=== PATIENT | male | born 1935 | race Caucasian/White ===

== ENCOUNTER 2016-10-31 07:18 | Inpatient (IN) | payer MEDICARE, BC ==
[2016-10-31 07:34] LABS: Glucose,Whole Blood 111 mg/dL (75-99)
[2016-10-31] MEDS ORDERED: RX INFO: IV CONTRAST WAS GIVEN 1 EACH MISC MISCELLANE PRN (07:41)
[2016-10-31] MEDS ORDERED: SODIUM CHLORIDE 0.9% 500 ML IV STA (07:41)
--- NOTE | 2016-10-31 07:45 | ED ---
General Adult HPI - General Chief complaint: Neuro Symptoms/Deficit Stated complaint: poss cva, left sided weakness Time Seen by Provider: 10/31/16 07:25 Source: patient, EMS, RN notes reviewed Mode of arrival: EMS Limitations: no limitations - History of Present Illness Initial comments: This is an 81-year-old male who was last seen at 8:30 last night and was normal at that time. This morning he was found on the ground after having tried to go to bathroom and he was unable to move his left leg and was weak in the left arm. According to family he has not had a history of this before. Patient himself denies any pain. Patient denies headache patient denies any numbness he now realizes he has weakness on the left side but initially did not. Patient denies any chest pain palpitations difficulty breathing shortness of breath. Patient denies any fever or cough. Patient denies abdominal pain patient denies nausea vomiting diarrhea. Patient denies being lightheaded or dizzy. - Related Data Home Medications Medication Instructions Recorded Confirmed Acetaminophen [Tylenol] 500 mg PO BID PRN 10/22/14 10/22/14 Aspirin EC [Ecotrin Low Dose] 81 mg PO DAILY 10/22/14 10/22/14 Atenolol [Tenormin] 50 mg PO BID 10/22/14 10/22/14 Cholecalciferol [Vitamin D3] 1,000 unit PO DAILY 10/22/14 10/22/14 Cyanocobalamin [Vitamin B-12] 1,000 mcg PO DAILY 10/22/14 10/22/14 Donepezil [Aricept] 5 mg PO HS 10/22/14 10/22/14 Insulin NPL/Insulin Lispro 40 unit SQ BID 10/22/14 10/22/14 [humaLOG MIX 75-25 VIAL] Multivitamin [Men's Multi-Vitamin] 1 tab PO DAILY 10/22/14 10/22/14 Allergies Allergy/AdvReac Type Severity Reaction Status Date / Time No Known Allergies Allergy Verified 10/22/14 18:54 Review of Systems ROS Statement: Those systems with pertinent positive or pertinent negative responses have been documented in the HPI. ROS Other: All systems not noted in ROS Statement are negative. Past Medical History Past Medical History: Chest Pain / Angina, Diabetes Mellitus, Hyperlipidemia, Hypertension, Osteoarthritis (OA) Additional Past Medical History / Comment(s): Parkinsons History of Any Multi-Drug Resistant Organisms: None Reported Past Surgical History: Appendectomy, Back Surgery, Cholecystectomy Additional Past Surgical History / Comment(s): tish cataracts, pilonidal cyst removed, pain clinic procedures Past Anesthesia/Blood Transfusion Reactions: No Reported Reaction Past Psychological History: No Psychological Hx Reported Smoking Status: Former smoker Past Alcohol Use History: None Reported Past Drug Use History: None Reported - Past Family History Mother History Unknown: Yes Father Additional Family Medical History / Comment(s): heart problems General Exam - General Exam Comments Initial Comments: GENERAL: Patient is well-developed and well-nourished. Patient is nontoxic and well- hydrated and is in no acute distress. ENT: Neck is soft and supple. No significant lymphadenopathy is noted. Oropharynx is clear. Moist mucous membranes. Neck has full range of motion without eliciting any pain. EYES: The sclera were anicteric and conjunctiva were pink and moist. Extraocular movements were intact and pupils were equal round and reactive to light. Eyelids were unremarkable. PULMONARY: Unlabored respirations. Good breath sounds bilaterally. No audible rales rhonchi or wheezing was noted. CARDIOVASCULAR: There is a regular rate and rhythm without any murmurs gallops or rubs. ABDOMEN: Soft and nontender with normal bowel sounds. No palpable organomegaly was noted. There is no palpable pulsatile mass. SKIN: Skin is clear with no lesions or rashes and otherwise unremarkable. NEUROLOGIC: Patient is alert and oriented x3. Cranial nerves II through XII are grossly intact. Patient has normal smile and his speech is normal. Patient has weakness in the left arm 3 out of 5 and almost complete paralysis of the left leg. MUSCULOSKELETAL: Normal extremities with adequate strength and full range of motion. No lower extremity swelling or edema. No calf tenderness. LYMPHATICS: No significant lymphadenopathy is noted PSYCHIATRIC: Normal psychiatric evaluation. Normal interpersonal interactions appears functionally intact in deals appropriately with others. No signs of depression. No signs of anxiety. No delusions. No hallucinations. Limitations: no limitations Course Vital Signs 10/31/16 10/31/16 07:25 08:29 Temperature 97.4 F L Pulse Rate 53 L 59 L Respiratory 20 18 Rate Blood Pressure 164/77 164/76 O2 Sat by Pulse 100 100 Oximetry Medical Decision Making - Medical Decision Making EKG shows sinus rhythm with occasional PVC at 64 bpm HI interval is 184 QRS is 92 QT interval is 466 QTC is 480. Patient's EKG shows no ST segment elevation however there is some flattening of the T-wave in the inferior leads. Chest x-ray shows no acute abnormality. Computed tomography scan and CTA showed no acute abnormality other than a 50% stenosed left carotid. Patient remains weak on the left side. I spoke with Dr. Helms who is on for Dr. Pepe and admitted the patient wrote admitting orders and consult the neurology - Lab Data Result diagrams: 10/31/16 07:35 10/31/16 07:35 Lab Results 10/31/16 10/31/16 10/31/16 Range/Units 07:33 07:35 07:35 WBC 7.3 (3.8-10.6) k/uL RBC 5.20 (4.30-5.90) m/uL Hgb 14.9 (13.0-17.5) gm/dL Hct 44.9 (39.0-53.0) % MCV 86.3 (80.0-100.0) fL MCH 28.7 (25.0-35.0) pg MCHC 33.3 (31.0-37.0) g/dL RDW 14.9 (11.5-15.5) % Plt Count 144 L (150-450) k/uL Neutrophils % 82 % Lymphocytes % 11 % Monocytes % 4 % Eosinophils % 2 % Basophils % 1 % Neutrophils # 6.0 (1.3-7.7) k/uL Lymphocytes # 0.8 L (1.0-4.8) k/uL Monocytes # 0.3 (0-1.0) k/uL Eosinophils # 0.1 (0-0.7) k/uL Basophils # 0.1 (0-0.2) k/uL PT (9.0-12.0) sec INR (<1.2) APTT (22.0-30.0) sec Sodium (137-145) mmol/L Potassium (3.5-5.1) mmol/L Chloride (98-107) mmol/L Carbon Dioxide (22-30) mmol/L Anion Gap mmol/L BUN (9-20) mg/dL Creatinine (0.66-1.25) mg/dL Est GFR (MDRD) Af Amer (>60 ml/min/1.73 sqM) Est GFR (MDRD) Non-Af (>60 ml/min/1.73 sqM) Glucose (74-99) mg/dL POC Glucose (mg/dL) 111 H (75-99) mg/dL POC Glu [employer] ID Fernanda Cardoso Calcium (8.4-10.2) mg/dL Total Bilirubin (0.2-1.3) mg/dL AST (17-59) U/L ALT (21-72) U/L Alkaline Phosphatase (38-126) U/L Total Creatine Kinase 78 (55-170) U/L CK-MB (CK-2) 2.1 (0.0-2.4) ng/mL CK-MB (CK-2) Rel Index 2.7 Troponin I 0.031 (0.000-0.034) ng/mL Total Protein (6.3-8.2) g/dL Albumin (3.5-5.0) g/dL 10/31/16 10/31/16 Range/Units 07:35 07:35 WBC (3.8-10.6) k/uL RBC (4.30-5.90) m/uL Hgb (13.0-17.5) gm/dL Hct (39.0-53.0) % MCV (80.0-100.0) fL MCH (25.0-35.0) pg MCHC (31.0-37.0) g/dL RDW (11.5-15.5) % Plt Count (150-450) k/uL Neutrophils % % Lymphocytes % % Monocytes % % Eosinophils % % Basophils % % Neutrophils # (1.3-7.7) k/uL Lymphocytes # (1.0-4.8) k/uL Monocytes # (0-1.0) k/uL Eosinophils # (0-0.7) k/uL Basophils # (0-0.2) k/uL PT 10.7 (9.0-12.0) sec INR 1.1 (<1.2) APTT 22.6 (22.0-30.0) sec Sodium 140 (137-145) mmol/L Potassium 4.5 (3.5-5.1) mmol/L Chloride 107 (98-107) mmol/L Carbon Dioxide 27 (22-30) mmol/L Anion Gap 6 mmol/L BUN 15 (9-20) mg/dL Creatinine 0.91 (0.66-1.25) mg/dL Est GFR (MDRD) Af Amer >60 (>60 ml/min/1.73 sqM) Est GFR (MDRD) Non-Af >60 (>60 ml/min/1.73 sqM) Glucose 110 H (74-99) mg/dL POC Glucose (mg/dL) (75-99) mg/dL POC Glu [employer] ID Calcium 9.1 (8.4-10.2) mg/dL Total Bilirubin 0.8 (0.2-1.3) mg/dL AST 26 (17-59) U/L ALT 29 (21-72) U/L Alkaline Phosphatase 77 (38-126) U/L Total Creatine Kinase (55-170) U/L CK-MB (CK-2) (0.0-2.4) ng/mL CK-MB (CK-2) Rel Index Troponin I (0.000-0.034) ng/mL Total Protein 5.8 L (6.3-8.2) g/dL Albumin 3.6 (3.5-5.0) g/dL Disposition Clinical Impression: Cerebrovascular accident Disposition: ADMITTED IP TO THIS HOSP Referrals: Esequiel Carr MD [Primary Care Provider] - 1-2 days Time of Disposition: 09:17
[2016-10-31 08:00] LABS: Basophils # (A) 0.1 k/uL (0-0.2); Basophils % (A) 1 %; CH 28.1; CHCM 32.7; Eosinophils # (A) 0.1 k/uL (0-0.7); Eosinophils % (A) 2 %; HCT 44.9 % (39.0-53.0); HDW 2.55; HGB 14.9 gm/dL (13.0-17.5); Luc # (Auto) 0.04; Luc % (Auto) 1; Lymphocytes # (A) 0.8 k/uL (1.0-4.8); Lymphocytes % (A) 11 %; MCH 28.7 pg (25.0-35.0); MCHC 33.3 g/dL (31.0-37.0); MCV 86.3 fL (80.0-100.0); Mean Platelet Volume 8.8; Monocytes # (A) 0.3 k/uL (0-1.0); Monocytes % (A) 4 %; Neutrophils % (A) 82 %; RDW 14.9 % (11.5-15.5); WBC 7.3 k/uL (3.8-10.6); WBC (Perox) 7.42
[2016-10-31 08:09] LABS: INR 1.1 (<1.2); Partial Thromboplastin Time 22.6 sec (22.0-30.0); Prothrombin Time 10.7 sec (9.0-12.0)
[2016-10-31 08:20] LABS: Anion Gap 6 mmol/L; Calcium 9.1 mg/dL (8.4-10.2); Carbon Dioxide 27 mmol/L (22-30); Chloride 107 mmol/L (98-107); Glucose 110 mg/dL (74-99); Non-African American GFR(MDRD) >60 (>60 ml/min/1.73 sqM); Sodium 140 mmol/L (137-145); Total Bilirubin 0.8 mg/dL (0.2-1.3); Total Protein 5.8 g/dL (6.3-8.2)
[2016-10-31 08:25] LABS: ALT 29 U/L (21-72); AST 26 U/L (17-59); Alkaline Phosphatase 77 U/L (38-126); Blood Urea Nitrogen 15 mg/dL (9-20); Potassium 4.5 mmol/L (3.5-5.1)
--- NOTE | 2016-10-31 08:25 | CT ---
EXAMINATION TYPE: CT brain wo con for TPA DATE OF EXAM: 10/31/2016 COMPARISON: 02/27/2014 HISTORY: Lt sided weakness CT DLP: 995.5 mGycm Automated exposure control for dose reduction was used. FINDINGS: There is diffuse cerebral cortical atrophy. There is no mass effect nor midline shift. There is no ev idence of intracranial hemorrhage. IMPRESSION: MODERATE DIFFUSE ATROPHY. NO ACUTE INTRACRANIAL ABNORMALITY. NO CHANGE COMPARED TO OLD EXAM.
--- NOTE | 2016-10-31 08:27 | XR ---
EXAMINATION TYPE: XR chest 2V DATE OF EXAM: 10/31/2016 COMPARISON: 10/22/2014 HISTORY: Chest pain TECHNIQUE: Frontal and lateral views of the chest are obtained. FINDINGS: There is no heart failure nor confluent pneumonic infiltrate. There are chest leads. Costo phrenic angles are clear. Thoracic aorta is atheromatous. IMPRESSION: No pulmonary consolidation or heart failure. Inspiration is worse than old exam.
[2016-10-31 08:32] LABS: Creatine Kinase MB 2.1 ng/mL (0.0-2.4); Troponin I 0.031 ng/mL (0.000-0.034)
--- NOTE | 2016-10-31 08:48 | CT ---
EXAMINATION TYPE: CT angio head neck DATE OF EXAM: 10/31/2016 HISTORY: Left-sided weakness COMPARISON: NONE CT DLP: mGycm. Automated Exposure Control for Dose Reduction was Utilized. TECHNIQUE: CTA scan of the neck is performed , patient injected with 65 mL of Omnipaque 240, axial i mages are obtained, coronal and sagittal reformatted images are reviewed. Three-D reconstructed image s are created on an independent workstation and reviewed. FINDINGS: There is normal branching pattern of the great vessels on the aortic arch. There is arterial flow in both vertebral arteries. There is arterial flow in the common internal and external carotid arteries bilaterally. There is wid e patency of the right internal carotid artery. There is some calcified plaque at the origin of the l eft internal carotid artery. Lumen is narrowed up to 50%. There is arterial flow in the anterior middle and posterior cerebral arteries. There is arterial flow in the vertebrobasilar artery system. There is dense calcification in the pineal gland. I see no sig n of aneurysm or neovascularity. There is no sign of intracranial arterial stenosis. There is a small mucous retention cyst in the right maxillary sinus. There is normal contrast opacification of the ve nous sinuses. Conclusion There is approximate 50% stenosis at the origin of the left internal carotid artery. Normal right int ernal carotid artery. No abnormality demonstrated in the intracranial arterial circulation.
--- NOTE | 2016-10-31 10:31 | US ---
EXAMINATION TYPE: US carotid duplex BILAT DATE OF EXAM: 10/31/2016 COMPARISON: CT angio Head/ Neck CLINICAL HISTORY: Stenosis. EC patient stated has left sided weakness; CTA stated approximately 50% L eft ICA stenosis EXAM MEASUREMENTS: RIGHT: Peak Systolic Velocity (PSV) cm/sec ----- Right CCA: 66.7 ----- Right ICA: 74.6 ----- Right ECA: 62.6 ICA/CCA ratio: 1.1 RIGHT: End Diastole cm/sec ----- Right CCA: 0.0 ----- Right ICA: 13.1 ----- Right ECA: 0.0 LEFT: Peak Systolic Velocity (PSV) cm/sec ----- Left CCA: 83.8 ----- Left ICA: 91.9 ----- Left ECA: 125.8 ICA/CCA ratio: 1.1 LEFT: End Diastole cm/sec ----- Left CCA: 6.3 ----- Left ICA: 11.1 ----- Left ECA: 0.0 VERTEBRALS (direction of flow): Right Vertebral: Antegrade Left Vertebral: Antegrade Irregular wall plaque imaged at proximal Right CCA and mild intimal wall changes noted Right ICA/ Rig ht ECA, but PSV is wnl. Interval wall plaque imaged Left CCA, moderate wall changes noted Proximal L eft ICA, and mild intimal wall thickening noted Left ECA, however, PSV is wnl throughout Left CCA and ICA. Left ICA bulb PSV was assessed x 3. Mildly elevated PSV (at 125cm/s) proximal Left ECA was note d. IMPRESSION: There is antegrade flow in the vertebral arteries. The images and measurements suggest 0 -50% stenosis in both internal carotid arteries and closer to 50% on the left side and 30% on the rig ht side. Criteria for Assigning % of Stenosis / Diameter reduction (Estimation based on the indirect measurements of the internal carotid artery velocities (ICA PSV). 1. Normal (no stenosis)=ICA PSV < 125 cm/s: ratio < 2.0: ICA EDV<40 cm/s. 2. Less than 50% stenosis=ICA PSV < 125 cm/s: ratio < 2.0: ICA EDV<40 cm/s. 3. 50 to 69% stenosis=ICA PSV of 125 to 230 cm/s: ration 2.0 ? 4.0: ICA EDV 40-100 cm/s. 4. Greater than 70% stenosis to near occlusion= ICA PSV > 230 cm/s: ratio > 4.0: ICA EDV > 100 cm/s. 5. Near occlusion= ICA PSV velocities may be low or undetectable: variable ratio and ICA EDV. 6. Total occlusion=unable to detect flow.
[2016-10-31 12:25] LABS: Glucose,Whole Blood 108 mg/dL (75-99)
[2016-10-31 12:57] VITALS: BMI 23.6
--- NOTE | 2016-10-31 14:14 | P.HPIM ---
History of Present Illness H&P Date: 10/31/16 Chief Complaint: Left-sided weakness This is an 81-year-old male patient being seen in evaluated and examined today on the selective care unit. This patient came into the emergency room this morning after being found on the floor with profound left leg and left arm weakness. His family wasn't unable to get him up so they called EMS. Patient states he was trying to get up to use the restroom and then he rolled off his mattress that was on the floor and stayed there until his family woke up and it is unclear at what time he tried to get up. Patient denies having any previous history of CVAs or anything like this happening before. He denies any leg numbness or tingling. Patient was worked up in the emergency room he was noted to have significant weakness on his left arm 3 out of 5 in all complete paralysis of his left leg. Patient is able to faintly wiggle his left toes. EKG was performed and shows normal sinus rhythm with occasional PVCs, chest x- ray shows no acute abnormality, CT scanning and CTA showed no acute abnormality other than 50% stenosed left carotid. Patient was admitted with a CVA with consult for neurology. Upon examination the patient's resting up in bed on room air denies any cough congestion or shortness of breath. He continues to be weak on his left side as above. Family is at bedside all questions have been answered plan of care has been discussed. Review of Systems 14 point review of systems was completed and is negative unless noted above in the HPI. Past Medical History Past Medical History: Chest Pain / Angina, Dementia, Diabetes Mellitus, Hyperlipidemia, Hypertension, Osteoarthritis (OA) Additional Past Medical History / Comment(s): Parkinsons History of Any Multi-Drug Resistant Organisms: None Reported Past Surgical History: Appendectomy, Back Surgery, Cholecystectomy Additional Past Surgical History / Comment(s): tish cataracts, pilonidal cyst removed, pain clinic procedures Past Anesthesia/Blood Transfusion Reactions: No Reported Reaction Past Psychological History: No Psychological Hx Reported Additional Psychological History / Comment(s): PT LIVES WITH HIS , IS INDEPENDANT. WORKED X 40 YEARS FOR [employer] IN [place]. Smoking Status: Former smoker Past Alcohol Use History: None Reported Additional Past Alcohol Use History / Comment(s): smoke x 20 years 1ppd, quit 1980's, no etoh since Past Drug Use History: None Reported - Past Family History Mother History Unknown: Yes Father Additional Family Medical History / Comment(s): heart problems Medications and Allergies Home Medications Medication Instructions Recorded Confirmed Type Acetaminophen [Tylenol] 1,000 mg PO BID PRN 10/22/14 10/31/16 History Aspirin EC [Ecotrin Low Dose] 81 mg PO DAILY 10/22/14 10/31/16 History Atenolol [Tenormin] 50 mg PO BID 10/22/14 10/31/16 History Cholecalciferol [Vitamin D3] 1,000 unit PO DAILY 10/22/14 10/31/16 History Cyanocobalamin [Vitamin B-12] 1,000 mcg PO DAILY 10/22/14 10/31/16 History Donepezil [Aricept] 5 mg PO HS 10/22/14 10/31/16 History Insulin NPL/Insulin Lispro 38 unit SQ QAM 10/22/14 10/31/16 History [humaLOG MIX 75-25 VIAL] Multivitamin [Men's Multi-Vitamin] 1 tab PO DAILY 10/22/14 10/31/16 History Benazepril [Lotensin] 10 mg PO DAILY 10/31/16 10/31/16 History Insulin NPL/Insulin Lispro 18 unit SQ HS 10/31/16 10/31/16 History [humaLOG MIX 75-25 VIAL] amLODIPine [Norvasc] 5 mg PO DAILY 10/31/16 10/31/16 History Allergies Allergy/AdvReac Type Severity Reaction Status Date / Time No Known Allergies Allergy Verified 10/31/16 10:03 Physical Exam Vitals: Vital Signs Temp Pulse Pulse Resp BP BP Pulse Ox 10/31/16 12:00 97 10/31/16 10:17 97.2 F L 62 18 174/83 99 10/31/16 09:17 62 18 168/84 99 10/31/16 08:29 59 L 18 164/76 100 10/31/16 07:25 97.4 F L 53 L 20 164/77 100 Intake and Output 10/30/16 10/31/16 10/31/16 22:59 06:59 14:59 Intake Total 500 Balance 500 Intake: Amount of Fluid Infused ( 500 ml) Other: Weight 74.84 kg Patient Weight 11/01/16 06:59 Weight 74.84 kg GENERAL EXAM: Alert, active, comfortable in no apparent distress. HEAD: Normocephalic. EYES: Normal reaction of pupils, equal size. NOSE: Clear with pink turbinates. THROAT: No erythema or exudates. NECK: No masses, no JVD. CHEST: No chest wall deformity. LUNGS: Equal air entry with no crackles, wheeze, rhonchi or dullness. CVS: S1 and S2 normal with no audible mumurs, regular rhythm. ABDOMEN: No hepatosplenomegaly, normal bowel sounds, no guarding or rigidity. EXTREMITIES: No edema noted, pedal pulses palpable. SKIN: No rashes CENTRAL NERVOUS SYSTEM: Left upper extremity weakness 3/5, almost complete paralysis of left leg. Patient's face is symmetric, Results CBC & Chem 7: 10/31/16 07:35 10/31/16 07:35 Labs: Abnormal Lab Results - Last 24 Hours (Table) 10/31/16 10/31/16 10/31/16 Range/Units 07:33 07:35 07:35 Plt Count 144 L (150-450) k/uL Lymphocytes # 0.8 L (1.0-4.8) k/uL Glucose 110 H (74-99) mg/dL POC Glucose (mg/dL) 111 H (75-99) mg/dL Total Protein 5.8 L (6.3-8.2) g/dL 10/31/16 Range/Units 12:08 Plt Count (150-450) k/uL Lymphocytes # (1.0-4.8) k/uL Glucose (74-99) mg/dL POC Glucose (mg/dL) 108 H (75-99) mg/dL Total Protein (6.3-8.2) g/dL Chest x-ray: report reviewed, image reviewed CT Scan - head: report reviewed, image reviewed Thrombosis Risk Factor Assmnt - DVT/VTE Prophylaxis DVT/VTE Prophylaxis: Pharmacologic Prophylaxis ordered - Choose All That Apply Any of the Below Risk Factors Present?: No Other Risk Factors: Yes Each Risk Factor Represents 2 Points: Patient confined to bed Each Risk Factor Represents 3 Points: Age 75 years or older Other congenital or acquired thrombophilia - If yes, enter type in comment: No Thrombosis Risk Factor Assessment Total Risk Factor Score: 5 Thrombosis Risk Factor Assessment Level: High Risk Assessment and Plan Plan: Assessment Probable CVA, with left-sided weakness, neurology consult Diabetes mellitus type 2 Hypertension Osteoarthritis Parkinson's Dementia Plan Home medications have been reordered. Maintain on Aspirin. Neurology was put on consult. Carotid Doppler results pending. Medications have been reviewed and will be continued as ordered. Continue with pulmonary hygiene, coughing and deep breathing exercises, and supportive care. Supplemental oxygen to maintain oxygen saturations of 92% or better. GI and DVT prophylaxis. We will continue to monitor labs/results and adjust treatment as necessary. Further recommendations pending. I performed an examination of the patient and discussed their management with the nurse practitioner. I have reviewed the nurse practitioner's note and agree with the documented findings and plan of care.
[2016-10-31] MEDS: CYANOCOBALAMIN 500 MCG TAB PO SCH (15:05)
[2016-10-31] MEDS: LISINOPRIL 10 MG TAB PO SCH (15:06)
[2016-10-31] MEDS: CHOLECALCIFEROL 1,000 UNIT TAB PO SCH (15:06)
[2016-10-31] MEDS: amLODIPine 5 MG TAB PO SCH (15:06)
[2016-10-31] MEDS: MULTIVITAMINS, THERA 1 EACH TAB PO SCH (15:06)
[2016-10-31] MEDS: ATENOLOL 50 MG TAB PO SCH ×2 (15:06→20:45)
[2016-10-31 17:18] LABS: Glucose,Whole Blood 173 mg/dL (75-99)
--- NOTE | 2016-10-31 20:13 | P.CNNES ---
History of Present Illness Consult date: 10/31/16 Reason for Consult: Patient being evaluated for left-sided weakness and possible TIA. History of Present Illness: This patient is a 81-year-old male who was apparently in his usual state of health yesterday. He had gone to bed as usual but this morning he was found collapsed on the floor next to his bed. Patient apparently noticed he was having weakness on his left side. His was unable to lift him so she called EMS. EMS decided to bring him in for further evaluation for stroke. His speech apparently remained clear but he was clearly weak on his left side as per the EMS run sheet. The patient is a poor historian but was able to provide some history. He states that the symptoms came on very suddenly frame. Patient denies any previous history of TIA or stroke. His left side was quite weak in the ER. The patient was sent for computed tomography scan of the brain which revealed only moderate degree of diffuse atrophy. No acute changes were noted. No evidence of acute stroke or hemorrhage. CTA angiogram of the neck was also performed and was reported to show only 50% stenosis of the left ICA. Right ICA was normal. The patient was subsequently admitted to the hospital for further evaluation. He is resting comfortably in bed. He still has significant left-sided hemiparesis. We have recommended he undergo a complete stroke evaluation including carotid Doppler ultrasound and MRI of the brain. His carotid ultrasound was completed today and revealed 50% stenosis of the left ICA. This does not appear to be a surgical concern at this time. The patient states that his speech has remained clear throughout this entire episode. We have recommended a MRI of the brain for further evaluation of evolving stroke. His overall prognosis at this time remains guarded. We will continue with close neurological follow-up of this patient. Review of Systems Constitutional: Denies chills, Denies fever Eyes: denies blurred vision, denies pain Ears, nose, mouth and throat: Denies headache, Denies sore throat Cardiovascular: Denies chest pain, Denies shortness of breath Respiratory: Denies cough Gastrointestinal: Denies abdominal pain, Denies diarrhea, Denies nausea, Denies vomiting Musculoskeletal: Denies myalgias Integumentary: Denies pruritus, Denies rash Neurological: Reports balance difficulties, Reports change in mentation, Reports confusion, Reports lack of coordination, Reports paresthesias, Denies numbness, Denies weakness Psychiatric: Denies anxiety, Denies depression Endocrine: Denies fatigue, Denies weight change Past Medical History Past Medical History: Chest Pain / Angina, Dementia, Diabetes Mellitus, Hyperlipidemia, Hypertension, Osteoarthritis (OA) Additional Past Medical History / Comment(s): Parkinsons History of Any Multi-Drug Resistant Organisms: None Reported Past Surgical History: Appendectomy, Back Surgery, Cholecystectomy Additional Past Surgical History / Comment(s): tish cataracts, pilonidal cyst removed, pain clinic procedures Past Anesthesia/Blood Transfusion Reactions: No Reported Reaction Past Psychological History: No Psychological Hx Reported Additional Psychological History / Comment(s): PT LIVES WITH HIS , IS INDEPENDANT. WORKED X 40 YEARS FOR [employer] IN [place]. Smoking Status: Former smoker Past Alcohol Use History: None Reported Additional Past Alcohol Use History / Comment(s): smoke x 20 years 1ppd, quit , no etoh since Past Drug Use History: None Reported - Past Family History Mother History Unknown: Yes Father Additional Family Medical History / Comment(s): heart problems Medications and Allergies Home Medications Medication Instructions Recorded Confirmed Type Acetaminophen [Tylenol] 1,000 mg PO BID PRN 10/22/14 10/31/16 History Aspirin EC [Ecotrin Low Dose] 81 mg PO DAILY 10/22/14 10/31/16 History Atenolol [Tenormin] 50 mg PO BID 10/22/14 10/31/16 History Cholecalciferol [Vitamin D3] 1,000 unit PO DAILY 10/22/14 10/31/16 History Cyanocobalamin [Vitamin B-12] 1,000 mcg PO DAILY 10/22/14 10/31/16 History Donepezil [Aricept] 5 mg PO HS 10/22/14 10/31/16 History Insulin NPL/Insulin Lispro 38 unit SQ QAM 10/22/14 10/31/16 History [humaLOG MIX 75-25 VIAL] Multivitamin [Men's Multi-Vitamin] 1 tab PO DAILY 10/22/14 10/31/16 History Benazepril [Lotensin] 10 mg PO DAILY 10/31/16 10/31/16 History Insulin NPL/Insulin Lispro 18 unit SQ HS 10/31/16 10/31/16 History [humaLOG MIX 75-25 VIAL] amLODIPine [Norvasc] 5 mg PO DAILY 10/31/16 10/31/16 History Allergies Allergy/AdvReac Type Severity Reaction Status Date / Time No Known Allergies Allergy Verified 10/31/16 10:03 Physical Examination - Vital Signs Vital Signs: Vital Signs Temp Pulse Pulse Pulse Pulse Resp BP 10/31/16 16:00 97.2 F L 68 14 10/31/16 12:00 97.0 F L 58 L 60 16 10/31/16 10:17 97.2 F L 62 18 174/83 10/31/16 09:17 62 18 10/31/16 08:29 59 L 18 164/76 10/31/16 07:25 97.4 F L 53 L 20 164/77 BP Pulse Ox 10/31/16 16:00 152/71 95 10/31/16 12:00 150/68 98 10/31/16 10:17 99 10/31/16 09:17 168/84 99 10/31/16 08:29 100 10/31/16 07:25 100 Intake and Output 10/31/16 10/31/16 10/31/16 06:59 14:59 22:59 Intake Total 500 10 Balance 500 10 Intake: IV 10 Invasive Line 1 10 Amount of Fluid Infused ( 500 ml) Other: Voiding Method Bedpan Bedpan Diaper Diaper Weight 74.84 kg Patient Weight 11/01/16 06:59 Weight 74.84 kg - Constitutional General appearance: average body habitus, cooperative - EENT EENT: PERRL, mucous membranes moist - Respiratory Respiratory: lungs clear, normal breath sounds - Cardiovascular Cardiovascular: regular rate, normal S1, normal S2 Extremities: no peripheral edema bilaterally - Gastrointestinal Gastrointestinal: normoactive bowel sounds - Integumentary Integumentary: normal - Neurologic Cranial nerve examination: PERRL, EOMI, VFF, V1/V2/V3 grossly intact, face symmetric, intact gag reflex, intact corneal reflex, normal palatal elevation Speech examination: intact Sensorimotor examination: intact Motor examination - right side: 4/5: biceps, triceps, wrist flexion, wrist extension, automation controls expert, hip flexors, knee extensors, dorsiflexion, toe extension (EHL) , plantarflexion Motor examination - left side: 2/5: biceps, triceps, wrist flexion, wrist extension, automation controls expert, 3/5: hip flexors, knee extensors, dorsiflexion, toe extension ( EHL), plantarflexion Detailed sensory examination: intact Reflex and gait examination: intact Reflexes: 1+: ankle, bicep, knee, tricep - Musculoskeletal Musculoskeletal: no pain - Psychiatric Psychiatric: mood/affect appropriate, cooperative Results - Laboratory Findings CBC and BMP: 10/31/16 07:35 10/31/16 07:35 Abnormal Lab Findings: Abnormal Labs 10/31/16 10/31/16 10/31/16 07:33 07:35 07:35 Plt Count 144 L Lymphocytes # 0.8 L Glucose 110 H POC Glucose (mg/dL) 111 H Total Protein 5.8 L 10/31/16 10/31/16 12:08 16:54 Plt Count Lymphocytes # Glucose POC Glucose (mg/dL) 108 H 173 H Total Protein Assessment and Plan (1) Acute right MCA stroke Status: Acute Code(s): I63.511 - CEREB INFRC D/T UNSP OCCLS OR STENOS OF RIGHT MID CEREB ART (2) History of dementia Status: Acute Code(s): Z86.59 - PERSONAL HISTORY OF OTHER MENTAL AND BEHAVIORAL DISORDERS (3) Encephalopathy Status: Acute Code(s): G93.40 - ENCEPHALOPATHY, UNSPECIFIED (4) Atypical chest pain Status: Acute Code(s): R07.89 - OTHER CHEST PAIN Plan: This patient is a 81-year-old male who was admitted to hospital with acute left- sided weakness. He was unable to get up off of the floor and was found collapsed next to his bed. EMS was called to the home and he was brought into the emergency room where he underwent a computed tomography scan of the brain as well as a CTA angiogram. Results are as noted above. He continues to demonstrate left-sided hemiparesthesias. His clinical history is suggesting an acute right MCA stroke. We have recommended a MRI of the brain for further evaluation. He should be maintained on aspirin therapy for secondary stroke prevention. His overall prognosis at this time remains very guarded. We will continue close neurological follow this patient during this admission. Time with Patient: Greater than 30
[2016-10-31 20:42] LABS: Glucose,Whole Blood 154 mg/dL (75-99)
[2016-10-31] MEDS: DONEPEZIL 5 MG TAB PO SCH (20:45)
[2016-10-31] MEDS: ACETAMINOPHEN TAB 500 MG TAB PO PRN (20:57)
[2016-10-31] MEDS: INSULIN NPL/INSULIN LISPRO 100 UNIT/ML 10 ML VIAL (Humalog 75/25) SQ SCH (20:58)
[2016-11-01 01:01] LABS: Cholesterol 154 mg/dL (<200); HDL Cholesterol 43 mg/dL (40-60)
[2016-11-01 06:15] LABS: Glucose,Whole Blood 137 mg/dL (75-99)
[2016-11-01] MEDS: amLODIPine 5 MG TAB PO SCH (09:56)
[2016-11-01] MEDS: CHOLECALCIFEROL 1,000 UNIT TAB PO SCH (09:56)
[2016-11-01] MEDS: ATENOLOL 50 MG TAB PO SCH ×2 (09:56→20:46)
[2016-11-01] MEDS: ASPIRIN 81 MG CHEW PO SCH (09:56)
[2016-11-01] MEDS: CYANOCOBALAMIN 500 MCG TAB PO SCH (09:56)
[2016-11-01] MEDS: MULTIVITAMINS, THERA 1 EACH TAB PO SCH (09:57)
[2016-11-01] MEDS: LISINOPRIL 10 MG TAB PO SCH (09:57)
[2016-11-01] MEDS: INSULIN NPL/INSULIN LISPRO 100 UNIT/ML 10 ML VIAL (Humalog 75/25) SQ SCH ×2 (10:01→20:47)
--- NOTE | 2016-11-01 11:25 | P.PN ---
Subjective 10/31/16- This is an 81-year-old male patient being seen in evaluated and examined today on the selective care unit. This patient came into the emergency room this morning after being found on the floor with profound left leg and left arm weakness. His family wasn't unable to get him up so they called EMS. Patient states he was trying to get up to use the restroom and then he rolled off his mattress that was on the floor and stayed there until his family woke up and it is unclear at what time he tried to get up. Patient denies having any previous history of CVAs or anything like this happening before. He denies any leg numbness or tingling. Patient was worked up in the emergency room he was noted to have significant weakness on his left arm 3 out of 5 in all complete paralysis of his left leg. Patient is able to faintly wiggle his left toes. EKG was performed and shows normal sinus rhythm with occasional PVCs, chest x-ray shows no acute abnormality, CT scanning and CTA showed no acute abnormality other than 50% stenosed left carotid. Patient was admitted with a CVA with consult for neurology. Upon examination the patient's resting up in bed on room air denies any cough congestion or shortness of breath. He continues to be weak on his left side as above. Family is at bedside all questions have been answered plan of care has been discussed. 11/01/16- patient is being seen examined and evaluated today on rounds. The patient is currently on the selective care unit. Patient was evaluated by neurology yesterday and will be undergoing an MRI of the brain. Upon examination he is resting up in bed on room air denies any shortness of breath cough or congestion. He is afebrile, no overnight events. Continues to have left-sided hemiparesis. Objective - Vital Signs Vital signs: Vital Signs Temp 96.7 F L 11/01/16 08:00 Pulse 49 L 11/01/16 08:00 Resp 16 11/01/16 08:00 BP 144/67 11/01/16 08:00 Pulse Ox 95 11/01/16 08:48 Intake & Output 10/31/16 11/01/16 11/01/16 18:59 06:59 18:59 Intake Total 520 10 10 Balance 520 10 10 Weight 74.84 kg 84.5 kg Intake: IV 20 10 10 Invasive Line 1 10 10 Normal Saline 10 10 Amount of Fluid Infused ( 500 ml) Other: Voiding Method Bedpan Bedpan Bedpan Diaper Diaper Diaper # Voids 1 - Exam GENERAL EXAM: Alert, active, comfortable in no apparent distress. HEAD: Normocephalic. EYES: Normal reaction of pupils, equal size. NOSE: Clear with pink turbinates. THROAT: No erythema or exudates. NECK: No masses, no JVD. CHEST: No chest wall deformity. LUNGS: Equal air entry with no crackles, wheeze, rhonchi or dullness. CVS: S1 and S2 normal with no audible mumurs, regular rhythm. ABDOMEN: No hepatosplenomegaly, normal bowel sounds, no guarding or rigidity. EXTREMITIES: No edema noted, pedal pulses palpable. SKIN: No rashes CENTRAL NERVOUS SYSTEM: Left upper extremity weakness 3/5, almost complete paralysis of left leg. Patient's face is symmetric, - Labs CBC & Chem 7: 10/31/16 07:35 10/31/16 07:35 Labs: Abnormal Lab Results - Last 24 Hours (Table) 10/31/16 10/31/16 10/31/16 Range/Units 12:08 16:54 20:40 POC Glucose (mg/dL) 108 H 173 H 154 H (75-99) mg/dL 11/01/16 Range/Units 06:12 POC Glucose (mg/dL) 137 H (75-99) mg/dL Assessment and Plan Plan: Assessment Probable CVA, with left-sided weakness, neurology consult Diabetes mellitus type 2 Hypertension Osteoarthritis Parkinson's Dementia Plan Medications have been reviewed and will be continued as ordered. PT OT and speech therapy will be consult. We'll also consult Dr. Mishra for eval for rehab services. Maintain on Aspirin. Neurology was put on consult. Carotid Doppler reviewed as well as all labs and reports. Medications have been reviewed and will be continued as ordered. Continue with pulmonary hygiene, coughing and deep breathing exercises, and supportive care. Supplemental oxygen to maintain oxygen saturations of 92% or better. GI and DVT prophylaxis. We will continue to monitor labs/results and adjust treatment as necessary. Further recommendations pending. I performed an examination of the patient and discussed their management with the nurse practitioner. I have reviewed the nurse practitioner's note and agree with the documented findings and plan of care.
[2016-11-01 12:24] LABS: Glucose,Whole Blood 118 mg/dL (75-99)
[2016-11-01] MEDS: ACETAMINOPHEN TAB 500 MG TAB PO PRN ×2 (12:39→20:47)
[2016-11-01 17:01] LABS: Glucose,Whole Blood 170 mg/dL (75-99)
[2016-11-01 20:42] LABS: Glucose,Whole Blood 168 mg/dL (75-99)
[2016-11-01] MEDS: DONEPEZIL 5 MG TAB PO SCH (20:46)
[2016-11-02 06:27] LABS: Glucose,Whole Blood 59 mg/dL (75-99)
[2016-11-02 06:44] LABS: Glucose,Whole Blood 86 mg/dL (75-99)
--- NOTE | 2016-11-02 06:48 | P.CONS ---
History of Present Illness - Chief Complaint Gait disturbance with left hemiplegia - History of Present Illness I had the op to see patient for inpatient rehab consultation with regard to gait disturbance. He was admitted to [facility] October 31 with acute onset left- sided weakness. Seen by Dr. Jovanny Martines for the stroke and encephalopathy. In view CT demonstrated 50% occlusion left carotid and normal right carotid. Carotid Doppler demonstrated 50% stenosis left and 30% right. Chest x-ray negative. Head CT with moderate diffuse atrophy. PT reports total assistance for bed mobility. Balance poor. OT and speech prescribed. Previous functional history as elicited from patient: 79-year-old right-handed white male who is lives and one for home with . Retired. does the cooking. This apparently share the laundry needed drive. Describes independent with tub bath and gait without device. Review of Systems Review of systems: ENT: Denies sneezes or discharge. Eyes: Denies discharge or photophobia. Cardiac: Denies chest pain or palpitation. Pulmonary: Denies cough or shortness of breath. Gastrointestinal: Denies nausea, emesis, constipation, diarrhea. Genitourinary: Denies discharge or frequency. Musculoskeletal: Complains of intermittent discomfort right foot. Neurologic: Denies motor or sensory change but is obviously weak on the left side. Endocrine: Denies shakes or sweats. Oncology: Denies cancers. Dermatologic: Denies rash, itching, pruritus. ALLERGY/immunology: Denies sneezes, rashes. Past Medical History Past Medical History: Chest Pain / Angina, Dementia, Diabetes Mellitus, Hyperlipidemia, Hypertension, Osteoarthritis (OA) Additional Past Medical History / Comment(s): Parkinsons History of Any Multi-Drug Resistant Organisms: None Reported Past Surgical History: Appendectomy, Back Surgery, Cholecystectomy Additional Past Surgical History / Comment(s): tish cataracts, pilonidal cyst removed, pain clinic procedures Past Anesthesia/Blood Transfusion Reactions: No Reported Reaction Past Psychological History: No Psychological Hx Reported Additional Psychological History / Comment(s): PT LIVES WITH HIS , IS INDEPENDANT. WORKED X 40 YEARS FOR [employer] IN [place]. Smoking Status: Former smoker Past Alcohol Use History: None Reported Additional Past Alcohol Use History / Comment(s): smoke x 20 years 1ppd, quit , no etoh since Past Drug Use History: None Reported - Past Family History Mother History Unknown: Yes Father Additional Family Medical History / Comment(s): heart problems Medications and Allergies Home Medications Medication Instructions Recorded Confirmed Type Acetaminophen [Tylenol] 1,000 mg PO BID PRN 10/22/14 10/31/16 History Aspirin EC [Ecotrin Low Dose] 81 mg PO DAILY 10/22/14 10/31/16 History Atenolol [Tenormin] 50 mg PO BID 10/22/14 10/31/16 History Cholecalciferol [Vitamin D3] 1,000 unit PO DAILY 10/22/14 10/31/16 History Cyanocobalamin [Vitamin B-12] 1,000 mcg PO DAILY 10/22/14 10/31/16 History Donepezil [Aricept] 5 mg PO HS 10/22/14 10/31/16 History Insulin NPL/Insulin Lispro 38 unit SQ QAM 10/22/14 10/31/16 History [humaLOG MIX 75-25 VIAL] Multivitamin [Men's Multi-Vitamin] 1 tab PO DAILY 10/22/14 10/31/16 History Benazepril [Lotensin] 10 mg PO DAILY 10/31/16 10/31/16 History Insulin NPL/Insulin Lispro 18 unit SQ HS 10/31/16 10/31/16 History [humaLOG MIX 75-25 VIAL] amLODIPine [Norvasc] 5 mg PO DAILY 10/31/16 10/31/16 History Allergies Allergy/AdvReac Type Severity Reaction Status Date / Time No Known Allergies Allergy Verified 10/31/16 10:03 Physical Exam Vitals: Vital Signs Temp Pulse Pulse Resp BP Pulse Ox 11/02/16 04:00 97.2 F L 60 18 147/70 95 11/02/16 00:00 97.6 F 52 L 18 140/68 97 11/01/16 20:00 97.6 F 61 18 129/54 95 11/01/16 15:00 97.0 F L 59 L 55 L 16 140/73 94 L 11/01/16 11:26 97.0 F L 58 L 58 L 18 140/68 94 L 11/01/16 08:48 95 11/01/16 08:00 96.7 F L 49 L 58 L 16 144/67 96 Intake and Output 11/01/16 11/01/16 11/02/16 14:59 22:59 06:59 Intake Total 120 110 Balance 120 110 Intake: IV 20 10 Invasive Line 1 10 Normal Saline 10 10 Oral 100 100 Other: Voiding Method Bedpan Bedpan Bedpan Diaper Diaper Diaper # Voids 1 1 # Bowel Movements 1 Weight 84 kg Patient Weight 11/02/16 06:59 Weight 84 kg Skin: Good color, texture, turgor. General: Thin to Medium build and comfortable appearance. Head: Normocephalic, atraumatic. Eyes: Symmetric. Pupils equal round. Ears: Symmetric. Hearing within normal limits. Mouth: Clear. Neck: Supple. Carotid without bruit. Cardiac: Regular rate and rhythm. Lungs: Clear anteriorly and posteriorly. Abdomen: Soft active nontender. Extremities: Normal tone right side. Left side flaccid. Neurological: Mental status: Alert, cooperative, pleasant. Cranial nerves: Symmetric facial tone and trapezius. Motor: Normal strength and isolation right side. Left side flaccid. Sensation: Intact right side and absent left side. DTRs: Symmetric and equal throughout. Mobility: Would require two-person assistance. Results CBC & Chem 7: 10/31/16 07:35 10/31/16 07:35 Labs: Abnormal Lab Results - Last 24 Hours (Table) 11/01/16 11/01/16 11/01/16 Range/Units 11:58 16:49 20:41 POC Glucose (mg/dL) 118 H 170 H 168 H (75-99) mg/dL 11/02/16 Range/Units 06:20 POC Glucose (mg/dL) 59 L (75-99) mg/dL Chest x-ray: report reviewed (Negative.) CT Scan - head: report reviewed (Moderate diffuse atrophy.) Assessment and Plan (1) Acute right MCA stroke Status: Acute Plan: Impression: 1. Gait disturbance. 2. 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 3. Encephalopathy. 4. Diabetes. 5. Dementia. 6. Hypertension. 7. Disability. 8. Osteoarthritis. Comments and plan: PT, OT, CUSTOM STUDIO COORDINATOR ordered. PT initiated. At this time, rehab prognosis guarded. We'll follow for ability tolerate and benefit from therapy out of bed.
--- NOTE | 2016-11-02 08:37 | MR ---
EXAMINATION TYPE: MR brain wo con DATE OF EXAM: 11/02/2016 COMPARISON: CT brain dated 10/31/[address] angiogram head dated 10/31/2016 HISTORY: Acute left sided weakness TECHNIQUE: Multiplanar, multisequence images of the brain and brainstem is performed without intravenous contras t. FINDINGS: Focal area of restricted diffusion is seen involving both lutz and white matter along the p osterior right superior frontal gyrus in the distribution of the anterior cerebral artery. Numerous a reas of T2/FLAIR hyperintensity are seen within the periventricular and subcortical white matter as w ell as old lacunar injuries of the right thalamus, right lentiform nucleus and left eleanor. There is symmetric prominence of the ventricular system and peripheral sulci, related to age-related atrophy. Arterial flow voids appear maintained including the brain anterior cerebral artery. There i s no extra-axial fluid collection. Midline structures demonstrate normal morphology. The craniocerv ical junction appears within normal limits. The dural venous sinuses appear patent. The visualized s inuses are clear and the globes are intact. IMPRESSION: 1. Acute infarct involving the superior frontal gyrus in the distribution of the anterior cerebral ar chantal. 2. Old lacunar injury is at the right lentiform nucleus, right thalamus, and left eleanor. 3. Diffuse nonspecific white matter changes, likely on the basis of chronic microangiopathy. Attempt was made to call the ordering physician's office, however the ordering physician was not yet in the office and a Red message was communicated to Ana Reynolds MD via the [employer] Critical Result system on 11/02/2016 8:34 AM, Message ID [id number]. I will again attempt to call the off ice when the ordering physician arrives.
[2016-11-02] MEDS: ATENOLOL 50 MG TAB PO SCH ×2 (08:38→21:38)
[2016-11-02] MEDS: amLODIPine 5 MG TAB PO SCH (08:38)
[2016-11-02] MEDS: CYANOCOBALAMIN 500 MCG TAB PO SCH (08:38)
[2016-11-02] MEDS: CHOLECALCIFEROL 1,000 UNIT TAB PO SCH (08:38)
[2016-11-02] MEDS: ASPIRIN 81 MG CHEW PO SCH (08:38)
[2016-11-02 11:53] LABS: Glucose,Whole Blood 115 mg/dL (75-99)
[2016-11-02] MEDS: INSULIN LISPRO (humaLOG) 300 UNIT/3 ML VIAL SQ SCH ×3 (12:45→21:38)
--- NOTE | 2016-11-02 12:53 | PN ---
DATE OF SERVICE: 11/02/16 CHIEF COMPLAINT: Right sided cerebrovascular accident with left hemiparesis and expressive aphasia. HISTORY OF PRESENT ILLNESS: This gentleman is doing fairly well. He has a little trouble speaking but it is intelligible and he seems oriented. He still has significant weakness on the left. PHYSICAL EXAMINATION: Carotids are normal. Chest is clear. Cardiac exam is normal. Abdomen soft, nontender. He has weakness on the left which is felt to be 3 out of 6. IMPRESSION: Right sided cerebrovascular accident with left sided hemiparesis and expressive aphasia. PLAN: Continue with current program with increased activity, PT/OT and eventual discharge planning. EMMYD
[2016-11-02] MEDS: MULTIVITAMINS, THERA 1 EACH TAB PO SCH (12:55)
[2016-11-02] MEDS: LISINOPRIL 10 MG TAB PO SCH (12:55)
[2016-11-02 16:46] LABS: Glucose,Whole Blood 192 mg/dL (75-99)
[2016-11-02 21:24] LABS: Glucose,Whole Blood 186 mg/dL (75-99)
[2016-11-02] MEDS: DONEPEZIL 5 MG TAB PO SCH (21:38)
[2016-11-03 06:15] LABS: Glucose,Whole Blood 155 mg/dL (75-99)
[2016-11-03] MEDS: INSULIN LISPRO (humaLOG) 300 UNIT/3 ML VIAL SQ SCH ×4 (06:59→21:12)
[2016-11-03] MEDS: ATENOLOL 50 MG TAB PO SCH ×2 (08:59→21:12)
[2016-11-03] MEDS: ASPIRIN 81 MG CHEW PO SCH (08:59)
[2016-11-03] MEDS: LISINOPRIL 10 MG TAB PO SCH (08:59)
[2016-11-03 11:49] LABS: Glucose,Whole Blood 121 mg/dL (75-99)
[2016-11-03] MEDS: CYANOCOBALAMIN 500 MCG TAB PO SCH (12:10)
[2016-11-03] MEDS: amLODIPine 5 MG TAB PO SCH (12:10)
[2016-11-03] MEDS: MULTIVITAMINS, THERA 1 EACH TAB PO SCH (12:10)
[2016-11-03] MEDS: CHOLECALCIFEROL 1,000 UNIT TAB PO SCH (12:11)
[2016-11-03 16:44] LABS: Glucose,Whole Blood 166 mg/dL (75-99)
--- NOTE | 2016-11-03 20:05 | P.PN ---
Subjective This patient is a 81-year-old male being evaluated for acute right hemispheric stroke. Patient seems to be doing about the same since his initial neurological evaluation yesterday. He continues to demonstrate left-sided hemiparesis. He is undergoing a complete stroke evaluation at this time. We are waiting MRI of the brain to be done for further assessment of acute stroke. Patient continues to have some dysarthric speech. His stroke workup is currently in progress. We will await further recommendations from physical therapy due to his left-sided weakness. His overall prognosis at this time remains guarded. May consider inpatient rehab placement for this patient in the next week. We will continue close neurological follow-up of this patient. His overall prognosis remains guarded. Objective - Vital Signs Vital signs: Vital Signs Temp 97.6 F 11/01/16 20:00 Pulse 61 11/01/16 20:00 Resp 18 11/01/16 20:00 BP 129/54 11/01/16 20:00 Pulse Ox 95 11/01/16 20:00 Intake & Output 11/01/16 11/01/16 11/02/16 06:59 18:59 06:59 Intake Total 10 230 Balance 10 230 Weight 84.5 kg Intake: IV 10 30 Invasive Line 1 10 10 Normal Saline 20 Oral 200 Other: Voiding Method Bedpan Bedpan Bedpan Diaper Diaper Diaper # Voids 1 1 1 # Bowel Movements 1 - Exam Physical examination: PHYSICAL EXAMINATION: Patient is resting comfortably in bed. VITAL SIGNS: Blood pressure is [129/54]. Heart rate is [61]. Respiration is [18] . Temperature is [97.7]. HEENT: Head is atraumatic, neck is supple, there were no carotid bruits. CHEST: Lungs are clear to auscultation and percussion. CARDIAC: S1, S2 normal rate and rhythm. There is no murmur. ABDOMEN: Soft and nontender. Bowel sounds are present. EXTREMITIES: There is no pedal edema. Peripheral pulses are present. Neurological examination: Patient continues to demonstrate left-sided hemiparesis. He continues to have some slurred speech. We'll continue current stroke evaluation. - Labs CBC & Chem 7: 10/31/16 07:35 10/31/16 07:35 Labs: Abnormal Lab Results - Last 24 Hours (Table) 11/01/16 11/01/16 11/01/16 Range/Units 06:12 11:58 16:49 POC Glucose (mg/dL) 137 H 118 H 170 H (75-99) mg/dL 11/01/16 Range/Units 20:41 POC Glucose (mg/dL) 168 H (75-99) mg/dL Assessment and Plan (1) Acute right MCA stroke Status: Acute Code(s): I63.511 - CEREB INFRC D/T UNSP OCCLS OR STENOS OF RIGHT MID CEREB ART (2) History of dementia Status: Acute Code(s): Z86.59 - PERSONAL HISTORY OF OTHER MENTAL AND BEHAVIORAL DISORDERS (3) Encephalopathy Status: Acute Code(s): G93.40 - ENCEPHALOPATHY, UNSPECIFIED (4) Atypical chest pain Status: Acute Code(s): R07.89 - OTHER CHEST PAIN Plan: This patient is a 81-year-old male who was admitted to hospital with acute left- sided weakness. He was unable to get up off of the floor and was found collapsed next to his bed. EMS was called to the home and he was brought into the emergency room where he underwent a computed tomography scan of the brain as well as a CTA angiogram. Results are as noted above. He continues to demonstrate left-sided hemiparesis. His clinical history is suggesting an acute right MCA stroke. We have recommended a MRI of the brain for further evaluation. He should be maintained on aspirin therapy for secondary stroke prevention. His overall prognosis at this time remains very guarded. We're waiting his MRI of the brain to be done for further assessment. He continues to show evidence of left-sided weakness. He will continue with PT OT evaluations and may need subacute rehab placement next week. We will continue close neurological follow this patient during this admission.
--- NOTE | 2016-11-03 20:12 | P.PN ---
Subjective This patient is a 81-year-old male who recently suffered an acute right hemispheric stroke. He is continuing demonstrated evidence of left-sided hemiparesis with some expressive aphasia. He was able to complete MRI of the brain yesterday which did reveal evidence of an acute right BILLY territory infarction in the mid and parasagittal region. This would explain his lower extremity weakness. He does have some expressive aphasia as well. We did discuss the MRI results yesterday with the patient. We will continue close neurological follow-up for the patient. He was seen by Dr. Mishra for inpatient rehab placement. This would twice a day he'll for him in terms of stroke rehabilitation and recovery. We will continue to follow his progress very closely during this admission. His overall prognosis at this time remains guarded. Objective - Vital Signs Vital signs: Vital Signs Temp 97.3 F L 11/03/16 15:27 Pulse 62 11/03/16 15:27 Resp 16 11/03/16 15:27 BP 159/74 11/03/16 15:27 Pulse Ox 96 11/03/16 15:27 Intake & Output 11/03/16 11/03/16 11/04/16 06:59 18:59 06:59 Intake Total 436 Balance 436 Weight 84 kg Intake: IV 0 Normal Saline 0 Oral 436 Other: Voiding Method Bedpan Bedpan Diaper Diaper # Voids 1 - Exam Physical examination: PHYSICAL EXAMINATION: Patient is resting comfortably in bed. VITAL SIGNS: Blood pressure is [159/74]. Heart rate is [62]. Respiration is [16] . Temperature is [97.3]. HEENT: Head is atraumatic, neck is supple, there were no carotid bruits. CHEST: Lungs are clear to auscultation and percussion. CARDIAC: S1, S2 normal rate and rhythm. There is no murmur. ABDOMEN: Soft and nontender. Bowel sounds are present. EXTREMITIES: There is no pedal edema. Peripheral pulses are present. Neurological examination: Patient continues to demonstrate left-sided hemiparesis. He continues to have some slurred speech. We'll continue current stroke evaluation. - Labs CBC & Chem 7: 10/31/16 07:35 10/31/16 07:35 Labs: Abnormal Lab Results - Last 24 Hours (Table) 11/02/16 11/03/16 11/03/16 Range/Units 21:12 06:11 11:47 POC Glucose (mg/dL) 186 H 155 H 121 H (75-99) mg/dL 11/03/16 Range/Units 16:42 POC Glucose (mg/dL) 166 H (75-99) mg/dL Assessment and Plan (1) Acute right MCA stroke Status: Acute Code(s): I63.511 - CEREB INFRC D/T UNSP OCCLS OR STENOS OF RIGHT MID CEREB ART (2) History of dementia Status: Acute Code(s): Z86.59 - PERSONAL HISTORY OF OTHER MENTAL AND BEHAVIORAL DISORDERS (3) Encephalopathy Status: Acute Code(s): G93.40 - ENCEPHALOPATHY, UNSPECIFIED (4) Atypical chest pain Status: Acute Code(s): R07.89 - OTHER CHEST PAIN Plan: This patient is a 81-year-old male who was admitted to hospital with acute left- sided weakness. He was unable to get up off of the floor and was found collapsed next to his bed. EMS was called to the home and he was brought into the emergency room where he underwent a computed tomography scan of the brain as well as a CTA angiogram. Results are as noted above. He continues to demonstrate left-sided hemiparesis. His clinical history is suggesting an acute right MCA stroke. We have recommended a MRI of the brain for further evaluation. He should be maintained on aspirin therapy for secondary stroke prevention. His overall prognosis at this time remains very guarded. Patient did complete his MRI of the brain which did reveal evidence of any acute infarction involving the right anterior cerebral artery territory. This is located in the parasagittal region. This would explain his left-sided weakness. We have discussed the results of the MRI today with the patient in detail. He continues to show evidence of left-sided weakness. He will continue with PT OT evaluations and may need subacute rehab placement next week. Dr. Mishra has evaluated the patient. He wants to continue close monitoring of his response to physical therapy at this time. He may not be a good candidate if he does not show some progress with PT OT evaluations. We will continue close neurological follow this patient during this admission.
[2016-11-03 20:32] LABS: Glucose,Whole Blood 195 mg/dL (75-99)
[2016-11-03] MEDS: DONEPEZIL 5 MG TAB PO SCH (21:12)
[2016-11-04 06:04] LABS: Glucose,Whole Blood 138 mg/dL (75-99)
[2016-11-04] MEDS: INSULIN LISPRO (humaLOG) 300 UNIT/3 ML VIAL SQ SCH ×4 (06:06→20:45)
[2016-11-04 08:49] VITALS: RESP 16
[2016-11-04] MEDS: ASPIRIN 81 MG CHEW PO SCH (08:52)
[2016-11-04] MEDS: LISINOPRIL 10 MG TAB PO SCH (08:52)
[2016-11-04] MEDS: ATENOLOL 50 MG TAB PO SCH ×2 (08:52→20:40)
[2016-11-04] MEDS: amLODIPine 5 MG TAB PO SCH (08:52)
[2016-11-04 11:40] LABS: Glucose,Whole Blood 161 mg/dL (75-99)
[2016-11-04] MEDS: MULTIVITAMINS, THERA 1 EACH TAB PO SCH (13:33)
[2016-11-04] MEDS: CYANOCOBALAMIN 500 MCG TAB PO SCH (13:33)
[2016-11-04] MEDS: CHOLECALCIFEROL 1,000 UNIT TAB PO SCH (13:33)
[2016-11-04 16:46] LABS: Glucose,Whole Blood 158 mg/dL (75-99)
--- NOTE | 2016-11-04 17:33 | PN ---
DATE OF SERVICE: 11/03/2016 CHIEF COMPLAINT: CVA. HISTORY OF PRESENT ILLNESS: This gentleman is stable and doing just about the same. He is still having a little bit of difficulty with speech and left-sided upper extremity weakness. PHYSICAL EXAM: Chest is clear. The cardiac exam is normal. The abdomen is soft, non-tender. IMPRESSION: Right-sided cerebrovascular accident. PLAN: Continue with PT and OT. Work on discharge planning. CARTER
[2016-11-04] MEDS: DONEPEZIL 5 MG TAB PO SCH (20:40)
[2016-11-04 20:45] LABS: Glucose,Whole Blood 235 mg/dL (75-99)
[2016-11-04] MEDS: INSULIN NPL/INSULIN LISPRO 100 UNIT/ML 10 ML VIAL (Humalog 75/25) SQ SCH (23:10)
[2016-11-05 07:14] LABS: Glucose,Whole Blood 174 mg/dL (75-99)
[2016-11-05 07:41] VITALS: BP 148/71; PULSE 58; TEMP 97
[2016-11-05] MEDS: amLODIPine 5 MG TAB PO SCH (08:38)
[2016-11-05] MEDS: LISINOPRIL 10 MG TAB PO SCH (08:38)
[2016-11-05] MEDS: ASPIRIN 81 MG CHEW PO SCH (08:38)
[2016-11-05] MEDS: ATENOLOL 50 MG TAB PO SCH (08:38)
[2016-11-05] MEDS: INSULIN LISPRO (humaLOG) 300 UNIT/3 ML VIAL SQ SCH ×2 (08:39→12:57)
--- NOTE | 2016-11-05 09:03 | DS ---
CHIEF COMPLAINT: Difficulty speaking and left sided weakness. HISTORY OF PRESENT ILLNESS/PHYSICAL EXAMINATION: Details of this xochitl history and physical examination can be found in the initial workup. LABORATORY STUDIES: While he was in the hospital, he had laboratory studies, the details of which can be found in the laboratory section of her chart. HOSPITAL COURSE: After admission, he was placed on bed rest, started on intravenous fluids and frequent monitoring of ( ) and vital signs. He was seen in follow-up by neurology. It was felt that he had a left hemispheric CVA resulting in slight speech difficulty and weakness on the left side. He remains essentially stable while in the [facility] and he was started on PT and OT. Determination made that he will go to an [facility] for physical therapy and rehab. He will be discharged on the to [facility]. He will be on: 1. 81 mg of Aspirin a day. 2. Lopressor 50 mg twice a day. 3. Benazepril 10 mg once a day. 4. Vitamin D3 1000 units once a day. 5. Donepezil or Aricept 10 mg q.h.s. each day. 6. Amlodipine 5 mg once a day. His blood sugars will be monitored and treated appropriately once he is in the [facility]. He will be on a consistent carbohydrate diet. He will have Accu -Cheks done fasting at 4 p.m. every day. FINAL DIAGNOSES: 1. Right sided cerebrovascular accident. 2. Type 2 IDDM. 3. Hypertension. 4. Dementia. OPERATIONS: None. CONSULTATIONS: Neurology. He is improved. CARTER
[2016-11-05] MEDS: CYANOCOBALAMIN 500 MCG TAB PO SCH (12:15)
[2016-11-05] MEDS: MULTIVITAMINS, THERA 1 EACH TAB PO SCH (12:15)
[2016-11-05] MEDS: CHOLECALCIFEROL 1,000 UNIT TAB PO SCH (12:15)
[2016-11-05 12:40] LABS: Glucose,Whole Blood 130 mg/dL (75-99)
--- NOTE | 2016-11-05 19:23 | P.PN ---
Subjective This patient is a 81-year-old male who recently suffered an acute right hemispheric stroke. He is continuing demonstrated evidence of left-sided hemiparesis with some expressive aphasia. He was able to complete MRI of the brain yesterday which did reveal evidence of an acute right BILLY territory infarction in the mid and parasagittal region. This would explain his lower extremity weakness. He does have some expressive aphasia as well. We did discuss the MRI results yesterday with the patient. We will continue close neurological follow-up for the patient. He was seen by Dr. Mishra for inpatient rehab placement. This would twice a day he'll for him in terms of stroke rehabilitation and recovery. As noted his MRI of the brain did reveal evidence of an acute right parasagittal BILLY infarct. This is an unusual location probably due to branch occlusion of one of the BILLY small branch arteries. This clearly explains his left-sided weakness and mild aphasia. He is to continue with aggressive therapy and should be closely monitored. He is to continue to work with PT OT. He will be going to [facility] for ongoing PT OT and speech therapy. He should be maintained on his current dose of Aricept for his underlying mild dementia. We'll be happy to reevaluate the patient after he is discharged from the [facility]. His overall prognosis at this time remains guarded. We will continue to follow his progress very closely during this admission. His overall prognosis at this time remains guarded. Objective - Vital Signs Vital signs: Vital Signs Temp 97.0 F L 11/05/16 07:00 Pulse 58 L 11/05/16 07:00 Resp 16 11/05/16 07:00 BP 148/71 11/05/16 07:00 Pulse Ox 97 11/05/16 07:00 Intake & Output 11/05/16 11/05/16 11/06/16 06:59 18:59 06:59 Intake Total 10 Balance 10 Intake: IV 10 Normal Saline 10 Other: Voiding Method Incontinent # Voids 2 - Exam Physical examination: PHYSICAL EXAMINATION: Patient is resting comfortably in bed. VITAL SIGNS: Blood pressure is [148/71]. Heart rate is [58]. Respiration is [16] . Temperature is [97.0]. HEENT: Head is atraumatic, neck is supple, there were no carotid bruits. CHEST: Lungs are clear to auscultation and percussion. CARDIAC: S1, S2 normal rate and rhythm. There is no murmur. ABDOMEN: Soft and nontender. Bowel sounds are present. EXTREMITIES: There is no pedal edema. Peripheral pulses are present. Neurological examination: Patient continues to demonstrate left-sided hemiparesis. He continues to have some slurred speech. We'll continue current stroke evaluation. - Labs CBC & Chem 7: 10/31/16 07:35 10/31/16 07:35 Labs: Abnormal Lab Results - Last 24 Hours (Table) 11/04/16 11/05/16 11/05/16 Range/Units 20:44 06:44 12:36 POC Glucose (mg/dL) 235 H 174 H 130 H (75-99) mg/dL Assessment and Plan (1) Acute right MCA stroke Status: Acute Code(s): I63.511 - CEREB INFRC D/T UNSP OCCLS OR STENOS OF RIGHT MID CEREB ART (2) History of dementia Status: Acute Code(s): Z86.59 - PERSONAL HISTORY OF OTHER MENTAL AND BEHAVIORAL DISORDERS (3) Encephalopathy Status: Acute Code(s): G93.40 - ENCEPHALOPATHY, UNSPECIFIED (4) Atypical chest pain Status: Acute Code(s): R07.89 - OTHER CHEST PAIN Plan: This patient is a 81-year-old male who was admitted to hospital with acute left- sided weakness. He was unable to get up off of the floor and was found collapsed next to his bed. EMS was called to the home and he was brought into the emergency room where he underwent a computed tomography scan of the brain as well as a CTA angiogram. Results are as noted above. He continues to demonstrate left-sided hemiparesis. His clinical history is suggesting an acute right MCA stroke. We have recommended a MRI of the brain for further evaluation. He should be maintained on aspirin therapy for secondary stroke prevention. His overall prognosis at this time remains very guarded. Patient did complete his MRI of the brain which did reveal evidence of any acute infarction involving the right anterior cerebral artery territory. This is located in the parasagittal region. This would explain his left-sided weakness. We have discussed the results of the MRI today with the patient in detail. He continues to show evidence of left-sided weakness. He will continue with PT OT evaluations and may need subacute rehab placement. Dr. Mishra has evaluated the patient. He wants to continue close monitoring of his response to physical therapy at this time. The patient is being readied for transferred to [facility] for further treatment of his recent stroke. He should be maintained on Aricept for treatment of his underlying dementia. He will be discharged to the [facility] later today. He may schedule a follow-up in the outpatient neurology clinic in 3-4 weeks for further follow-up of his recent stroke. His overall prognosis at this time remains very guarded. We will continue close neurological follow this patient during this admission. As noted patient may follow-up in the outpatient neurology clinic in 3-4 weeks or sooner after discharge from the [facility].
--- NOTE | 2016-11-06 13:24 | CDI ---
In responding to this query, please exercise your independent professional judgment. The [facility] Coding Staff and Clinical Documentation Specialists appreciate your assistance in clarifying documentation, maintaining compliance with coding guidelines, accurately documenting patients condition and capturing severity of illness. The fact that a question is asked does not imply that any particular answer is desired or expected. Communication forms are a method of clarifying documentation and are not made part of the Legal Health Record. Thank you in advance for your clarification. Last Revision, January 2015 Korey Waldrop [address] [place] [address] Documentation Clarification Form Date: 11/06/2016 1:13:00 PM From: Annia Youngblood [facility] Admit Date: 10/31/2016 9:17:00 AM Patient Name: Hai Hebert Visit Number: [id number] Discharge Date: 11-05-16 Dr. Esequiel Carr Encephalopathy is documented in Dr. Jovanny Reynolds and Dr. David Mishra's consultation. Please specify type of encephalopathy, if applicable, below: History/Risk factors: NIHSS score = 8. Hypertension, Parkinson's disease, mild dementia, New right BILLY stroke with dysarthria, speech disturbance, aphasia , left sided weakness. History of smoker, carotid stenosis: Left = 50%, Right = 30%. Diabetes type II, hyperlipidemia. Clinical Indicators: EEG: not done MRI Brain: 11-02-16 1. Acute infarct involving the superior frontal gyrus in the distribution of the anterior cerebral artery. 2. Old lacunar injury is at the right lentiform nucleus, right thalamus, and left eleanor. 3. Diffuse nonspecific white matter changes, likely on the basis of chronic microangiopathy. CT Head: 10-31-16 There is diffuse cerebral cortical atrophy. There is no mass effect nor midline shift. There is no evidence of intracranial hemorrhage. IMPRESSION: MODERATE DIFFUSE ATROPHY. NO ACUTE INTRACRANIAL ABNORMALITY. NO CHANGE COMPARED TO OLD EXAM. CT Angio Head Neck: 10-31-16 There is approximate 50% stenosis at the origin of the left internal carotid artery. Normal right internal carotid artery. No abnormality demonstrated in the intracranial arterial circulation. Consults: Neurology and Physical Rehab. In your professional opinion, can you please clarify the specific type of encephalopathy, if known? Anoxic Encephalopathy Hypertensive Encephalopathy Metabolic Encephalopathy Septic Encephalopathy Toxic Encephalopathy Traumatic Encephalopathy Hepatic Encephalopathy, if indicated, please clarify: - Indicate if any complications: Coma, other disease process? - Indicate whether acute, sub-acute or chronic? - Causal Condition: Alcoholism, Hepatitis, other disease process? Other, please specify Unable to determine If you have a question about this query, please contact Josie Avilez Education Reviewer at [phone] between 8am-5pm. Please document an addendum in your discharge summary in order to capture severity of illness and risk of mortality. Include clinical findings that support your diagnosis. FYI: Press F11 to launch patient chart. CARTER
--- NOTE | 2016-11-09 14:50 | CDI ---
In responding to this query, please exercise your independent professional judgment. The [facility] Coding Staff and Clinical Documentation Specialists appreciate your assistance in clarifying documentation, maintaining compliance with coding guidelines, accurately documenting patients condition and capturing severity of illness. The fact that a question is asked does not imply that any particular answer is desired or expected. Communication forms are a method of clarifying documentation and are not made part of the Legal Health Record. Thank you in advance for your clarification. Last Revision, January 2015 Korey Waldrop [address] [place] [address] Documentation Clarification Form Date: 11/06/2016 1:13:00 PM From: Annia Youngblood [facility] Admit Date: 10/31/2016 9:17:00 AM Patient Name: Hai Hebert Visit Number: [id number] Discharge Date: 11-05-16 Dr. Esequiel Carr Encephalopathy is documented in Dr. Jovanny Reynolds's and Dr. David Mishra's consultation. Please specify type of encephalopathy, if applicable, below: History/Risk factors: NIHSS score = 8. Hypertension, Parkinson's disease, mild dementia, New right BILLY stroke with dysarthria, speech disturbance, aphasia , left sided weakness. History of smoker, carotid stenosis: Left = 50%, Right = 30%. Diabetes type II, hyperlipidemia. Clinical Indicators: EEG: not done MRI Brain: 11-02-16 1. Acute infarct involving the superior frontal gyrus in the distribution of the anterior cerebral artery. 2. Old lacunar injury is at the right lentiform nucleus, right thalamus, and left eleanor. 3. Diffuse nonspecific white matter changes, likely on the basis of chronic microangiopathy. CT Head: 10-31-16 There is diffuse cerebral cortical atrophy. There is no mass effect nor midline shift. There is no evidence of intracranial hemorrhage. IMPRESSION: MODERATE DIFFUSE ATROPHY. NO ACUTE INTRACRANIAL ABNORMALITY. NO CHANGE COMPARED TO OLD EXAM. CT Angio Head Neck: 10-31-16 There is approximate 50% stenosis at the origin of the left internal carotid artery. Normal right internal carotid artery. No abnormality demonstrated in the intracranial arterial circulation. Consults: Neurology and Physical Rehab. In your professional opinion, can you please clarify the specific type of encephalopathy, if known? Anoxic Encephalopathy Hypertensive Encephalopathy Metabolic Encephalopathy Septic Encephalopathy Toxic Encephalopathy Traumatic Encephalopathy Hepatic Encephalopathy, if indicated, please clarify: - Indicate if any complications: Coma, other disease process? - Indicate whether acute, sub-acute or chronic? - Causal Condition: Alcoholism, Hepatitis, other disease process? Other, please specify Unable to determine Please document and addendum in the discharge summary in order to capture severity of illness and risk of mortality. Include clinical findings that support your diagnosis. If you have a question about this query, please contact oJsie Avilez Hammer Fitter at [phone] between 8am-5pm. FYI: Press F11 to launch patient chart. CARTER
== END 2016-11-05 13:01 | DRG 64 ==
LOC: EC 07:18 → 6SEL 09:17 → 4MS4W 11-04 21:30
PROVIDERS: ADMIT Family Medicine; ATTEND Family Medicine
DX: I63.521 Cerebral infarction due to unspecified occlusion or stenosis of right anterior cerebral artery (principal); G93.40 Encephalopathy, unspecified; G20 Parkinson's disease; G81.94 Hemiplegia, unspecified affecting left nondominant side; F03.90 Unspecified dementia, unspecified severity, without behavioral disturbance, psychotic disturbance, mood disturbance, and anxiety; R47.01 Aphasia; I65.22 Occlusion and stenosis of left carotid artery; E11.9 Type 2 diabetes mellitus without complications; R47.1 Dysarthria and anarthria; R53.1 Weakness; I10 Essential (primary) hypertension; R47.81 Slurred speech; E78.5 Hyperlipidemia, unspecified; R32 Unspecified urinary incontinence; R29.708 NIHSS score 8; R07.89 Other chest pain; I49.3 Ventricular premature depolarization; M19.90 Unspecified osteoarthritis, unspecified site; R26.9 Unspecified abnormalities of gait and mobility; Z79.4 Long term (current) use of insulin; Z87.891 Personal history of nicotine dependence; Z79.899 Other long term (current) drug therapy; Z79.82 Long term (current) use of aspirin; Z98.42 Cataract extraction status, left eye; Z98.41 Cataract extraction status, right eye; Z90.49 Acquired absence of other specified parts of digestive tract; Z82.49 Family history of ischemic heart disease and other diseases of the circulatory system; Z86.79 Personal history of other diseases of the circulatory system
CPT/HCPCS: 36415; 70450; 70496; 70498; 70551; 71020; 80053; 80061; 82550; 82553; 84484; 85025; 85610; 85730; 93005; 93880; 94760; 95819; 99285